=== PATIENT | male | born 1975 | race African-American/Black ===

== ENCOUNTER 2016-12-12 16:51 | Emergency (ER) | payer SELFPAY ==
[~2016-12-12] VITALS: Ht 188 cm; Wt 100.0 kg
[~2016-12-12 16:51] MED LIST: ADVA100A INH; AMOX500T PO; DIPH50TA PO
[2016-12-12 16:53] VITALS: BP 162/90; PULSE 87; RESP 16; TEMP 98.8; O2SAT 97
--- NOTE | 2016-12-12 16:59 | PD ---
Physical Exam Time Seen by Provider: 16:58 Narrative 41 y/o male here with spasming sensation in hands/feet, back tightness. Vital signs reviewed. Seen at triage desk. Awaiting bed placement. Data Data Last Documented VS Vital Signs Date Time Temp Pulse Resp B/P Pulse Ox O2 Delivery O2 Flow Rate FiO2 12/12/16 16:53 98.8 87 16 162/90 97 MDM Medical Record Reviewed: Yes Supervised Visit with NORM: Jaden Alfaro December 12, 2016 16:59
--- NOTE | 2016-12-12 18:43 | PD ---
HPI . Headache and back pain Chief Complaint: Back/ Neck Pain or Injury Time Seen by Provider: 18:22 Travel History International Travel<30 days: No Contact w/Intl Traveler<30days: No Traveled to known affect area: No History of Present Illness HPI Patient presents complaining with pain in his entire back with headache since yesterday. He also complains of carpal pedal spasm. He states that his symptoms are exacerbated by movement leave by lying on his stomach. He denies any fever. He does complain of some nasal drainage. PFSH Past Medical History Cancer: No Diabetes: No Diminished Hearing: No Glaucoma: No Hepatitis: No Hiatal Hernia: No Hypertension: No Respiratory: Yes Thyroid Disease: No Past Surgical History Abdominal Surgery: Yes (umbilical hernia repair) Ear Surgery: No Eye Surgery: No Genitourinary Surgery: No Gynecologic Surgery: No Oral Surgery: No Pacemaker: No Social History Alcohol Use: Yes (OCCASSIONAL ) Tobacco Use: Yes (/2 ppd) Substance Use: Yes (SMOKES MARIJUANA OCCASSIONALLY) Allergies-Medications (Allergen,Severity, Reaction): Coded Allergies: Penicillin (Verified Allergy, Severe, 12/12/16) Reported Meds & Prescriptions Reported Meds & Active Scripts Active No Active Prescriptions or Reported Medications Review of Systems Except as stated in HPI: all other systems reviewed are Neg General / Constitutional: No: Fever, Chills Eyes: No: Blurred Vision HENT: Positive: Headaches, Rhinorrhea Cardiovascular: No: Chest Pain or Discomfort Gastrointestinal: No: Nausea, Vomiting, Diarrhea Genitourinary: No: Urgency, Frequency, Dysuria Musculoskeletal: Positive: Myalgias, Pain (diffuse back pain) Psychiatric: No: Substance Abuse (patient denies any history of IV drug abuse.) Physical Exam Narrative GENERAL: Patient is awake and alert and in no acute distress. SKIN: Warm and dry. HEAD: Atraumatic. Normocephalic. EYES: Pupils equal and round. Extraocular movements are intact. ENT: No nasal bleeding or discharge. Mucous membranes pink and moist. NECK: Trachea midline. Neck is supple. CARDIOVASCULAR: Regular rate and rhythm. Heart sounds are normal. RESPIRATORY: No accessory muscle use. Lungs are clear with full air movement throughout. GASTROINTESTINAL: Abdomen soft, non-tender, nondistended. MUSCULOSKELETAL: No obvious deformities. No edema. Diffuse tenderness to palpation of the back. No point tenderness to percussion or palpation. NEUROLOGICAL: Awake and alert. No obvious cranial nerve deficits. Motor grossly within normal limits. Normal speech. Full range of motion of all 4 extremities. PSYCHIATRIC: Appropriate mood and affect; insight and judgment normal. Data Data Last Documented VS Vital Signs Date Time Temp Pulse Resp B/P Pulse Ox O2 Delivery O2 Flow Rate FiO2 12/12/16 16:53 98.8 87 16 162/90 97 Orders Complete Blood Count With Diff (12/12/16 18:33) Comprehensive Metabolic Panel (12/12/16 18:33) Chest, Pa & Lat (12/12/16 18:33) Iv Access Insert/Monitor (12/12/16 18:33) Sodium Chloride 0.9% Flush (Ns Flush) (12/12/16 18:45) Ketorolac Inj (Toradol Inj) (12/12/16 18:45) Prochlorperazine Inj (Compazine Inj) (12/12/16 18:45) Diphenhydramine Inj (Benadryl Inj) (12/12/16 18:45) Labs Laboratory Tests Test 12/12/16 19:00 White Blood Count 8.6 TH/MM3 Red Blood Count 4.79 MIL/MM3 Hemoglobin 13.9 GM/DL Hematocrit 40.9 % Mean Corpuscular Volume 85.3 FL Mean Corpuscular Hemoglobin 28.9 PG Mean Corpuscular Hemoglobin 33.9 % Concent Red Cell Distribution Width 13.5 % Platelet Count 211 TH/MM3 Mean Platelet Volume 8.6 FL Neutrophils (%) (Auto) 58.4 % Lymphocytes (%) (Auto) 31.4 % Monocytes (%) (Auto) 8.6 % Eosinophils (%) (Auto) 1.0 % Basophils (%) (Auto) 0.6 % Neutrophils # (Auto) 5.0 TH/MM3 Lymphocytes # (Auto) 2.7 TH/MM3 Monocytes # (Auto) 0.7 TH/MM3 Eosinophils # (Auto) 0.1 TH/MM3 Basophils # (Auto) 0.1 TH/MM3 CBC Comment DIFF FINAL Differential Comment Sodium Level 140 MEQ/L Potassium Level 3.7 MEQ/L Chloride Level 103 MEQ/L Carbon Dioxide Level 29.0 MEQ/L Anion Gap 8 MEQ/L Blood Urea Nitrogen 10 MG/DL Creatinine 1.10 MG/DL Estimat Glomerular Filtration 89 ML/MIN Rate Random Glucose 96 MG/DL Calcium Level 9.1 MG/DL Total Bilirubin 0.4 MG/DL Aspartate Amino Transf 17 U/L (AST/SGOT) Alanine Aminotransferase 30 U/L (ALT/SGPT) Alkaline Phosphatase 74 U/L Total Protein 7.7 GM/DL Albumin 4.1 GM/DL MDM Medical Decision Making Medical Screen Exam Complete: Yes Emergency Medical Condition: Yes Differential Diagnosis Differential diagnosis includes but is not limited to muscular low back pain, DDD, spinal stenosis, epidural abscess, sciatica, kidney infection or stone. Differential diagnosis of headache includes but is not limited to migraine, muscle contraction headache, brain tumor, brain bleed Narrative Course Patient presents with the chief complaint of diffuse back pain associated with carpopedal spasm and headache. CBC & BMP Diagram 12/12/16 19:00 Last Impressions Chest X-Ray 12/12/16 1833 Signed Impressions: Service Date/Time: Monday, December 12, 2016 18:45 - CONCLUSION: No acute disease. Otis Rosa MD This patient's evaluation is completely normal. He does not have any alarming physical exam findings. He will be discharged home. Diagnosis Primary Impression: Back pain Qualified Code: M54.9 - Acute midline back pain, unspecified back location Additional Impressions: Carpopedal spasm Headache Qualified Code: R51 - Acute nonintractable headache, unspecified headache type Postnasal drip Patient Instructions: Acute Headache (DC), Back Pain (ED), General Instructions Med/Other Pt SpecificInfo: Prescription(s) given Scripts Cyclobenzaprine (Flexeril)10 Mg Tab10 Mg PO TID #30 TAB Ref 0 Prov:Brittany Reis MD 12/12/16 Ibuprofen 800 Mg [id number] Mg PO Q8H PRN (Pain/Inflammation) #60 TAB Ref 0 Prov:Brittany Reis MD 12/12/16 Disposition: 01 DISCHARGE HOME Condition: Stable Brittany Reis MD December 12, 2016 18:43
[2016-12-12] MEDS ORDERED: SODIUM CHLORIDE 0.9% FLUSH 10 ML FLUSH IVF PRN (18:45)
[2016-12-12] MEDS ORDERED: KETOROLAC TROMETHAMINE 30 MG/ML (IVP) VIAL IVP ONE (18:45)
[2016-12-12] MEDS ORDERED: diphenhydrAMINE HCL 50 MG/ML VIAL IVP ONE (18:45)
[2016-12-12] MEDS ORDERED: PROCHLORPERAZINE INJ 10 MG/2 ML VIAL IVP ONE (18:45)
[2016-12-12 19:16] LABS: BASOPHIL # 0.1 TH/MM3 (0-0.2); BASOPHIL % 0.6 % (0.0-2.0); EOSINOPHIL # 0.1 TH/MM3 (0-0.4); HEMATOCRIT 40.9 % (39.0-51.0); HEMO FLAGS DIFF FINAL; LYMPH % 31.4 % (9.0-44.0); LYMPHOCYTE # 2.7 TH/MM3 (1.0-4.8); MEAN CELL VOLUME 85.3 FL (80.0-100.0); MEAN CORPUSCULAR HEMOGLOBIN 28.9 PG (27.0-34.0); MEAN CORPUSCULAR HGB CONC 33.9 % (32.0-36.0); MONO % 8.6 % (0.0-8.0); NEUT % 58.4 % (16.0-70.0); PLATELET COUNT 211 TH/MM3 (150-450); RED BLOOD COUNT 4.79 MIL/MM3 (4.50-5.90); RED CELL DISTRIBUTION WIDTH 13.5 % (11.6-17.2); WHITE BLOOD COUNT 8.6 TH/MM3 (4.0-11.0)
[2016-12-12 19:39] LABS: ANION GAP 8 MEQ/L (5-15); AST (GOT) 17 U/L (15-37); BLOOD UREA NITROGEN 10 MG/DL (7-18); CHLORIDE 103 MEQ/L (98-107); GLOMERULAR FILTRATION RATE 89 ML/MIN (>89); POTASSIUM 3.7 MEQ/L (3.5-5.1); SODIUM (NA) 140 MEQ/L (136-145)
[2016-12-12 19:42] LABS: ALKALINE PHOSPHATASE 74 U/L (45-117); ALT (GPT) 30 U/L (12-78); TOTAL BILIRUBIN ADULT 0.4 MG/DL (0.2-1.0)
--- NOTE | 2016-12-12 19:45 | RADRPT ---
EXAM DATE/TIME: 12/12/2016 18:45 [facility] COMPARISON: No previous studies available for comparison. INDICATIONS : Shortness of breath,chest pain, and cough. MEDICAL HISTORY : None. SURGICAL HISTORY : None. ENCOUNTER: Initial ACUITY: 3 days PAIN SCORE: 7/10 LOCATION: Bilateral chest FINDINGS: PA and lateral views of the chest demonstrate the lungs to be symmetrically aerated without evidence of mass, infiltrate or effusion. The cardiomediastinal contours are unremarkable. Osseous structure s are intact. CONCLUSION: No acute disease. Otis Rosa MD on December 12, 2016 at 19:43 Board Certified Radiologist. This report was verified electronically.
[2016-12-12] MEDS ORDERED: IBUP800T23 PO (20:11)
[2016-12-12] MEDS ORDERED: CYCL1TAB29 PO (20:11)
[2016-12-12 20:32] VITALS: BP 154/80
== END 2016-12-12 20:33 | disposition home or self-care (01) ==
LOC: NEPD 16:51
DX: M54.9 Dorsalgia, unspecified (principal); R09.82 Postnasal drip; R51 Headache; R29.0 Tetany
CPT/HCPCS: 71020; 80053; 85025; 96374; 96375; 99284; J0780; J1200; J1885

== ENCOUNTER 2017-08-10 15:13 | Emergency (ER) | payer SELFPAY ==
[~2017-08-10] VITALS: Ht 188 cm; Wt 95.5 kg
[~2017-08-10 15:13] MED LIST changes: -ADVA100A INH; -AMOX500T PO; +CYCL10TA PO; -DIPH50TA PO; +IBUP1TAB7 PO
[2017-08-10 15:14] VITALS: BP 160/96; PULSE 92; RESP 16; TEMP 98; O2SAT 96
--- NOTE | 2017-08-10 22:19 | PD ---
Physical Exam Date Seen by Provider: Aug 10, 2017 Time Seen by Provider: 21:50 Narrative 41-year-old male presents to the emergency department for evaluation of right- sided abdominal pain. He states that he sees a line with 3 dots on his right abdomen and states it feels like a vein. Patient denies any other complaint at this time. Data Data Last Documented VS Vital Signs Date Time Temp Pulse Resp B/P (MAP) Pulse Ox O2 Delivery O2 Flow Rate FiO2 08/10/17 15:14 98.0 92 16 160/96 (117) 96 MDM Supervised Visit with NORM: No Narrative Course 41-year-old male presents to the emergency department for evaluation of right- sided abdominal pain. Patient was initially seen in triage. He left AGAINST MEDICAL ADVICE before he be placed in a medical bed. Diagnosis Primary Impression: Left against medical advice Additional Impression: Abdominal pain Qualified Codes: R10.9 - Unspecified abdominal pain Disposition: 07 AGAINST MEDICAL ADVICE Heydi To Aug 10, 2017 22:19
== END 2017-08-10 21:50 | disposition left against medical advice (07) ==
LOC: NED 15:13
DX: R10.9 Unspecified abdominal pain (principal)
CPT/HCPCS: 99281

== ENCOUNTER 2017-08-12 09:19 | Emergency (ER) | payer SELFPAY ==
[~2017-08-12] VITALS: Ht 188 cm; Wt 95.2 kg
[2017-08-12 09:23] VITALS: BP 123/85; PULSE 90; RESP 18; TEMP 98.5; O2SAT 100
--- NOTE | 2017-08-12 09:32 | PD ---
Physical Exam Time Seen by Provider: 09:30 Narrative 41yo M c/o right hip pain and right abd pain since yesterday. Denies injury. Reports decreased urination. Denies hematuria. Reports a palpable "vein" that is painful to his right abdominal area. Denies hx kidney stones. +nausea w/o vomiting. Unknown fevers. Patient seen in triage. VS reviewed. Awaiting bed placement. See next providers note for final patient disposition. Data Data Last Documented VS Vital Signs Date Time Temp Pulse Resp B/P (MAP) Pulse Ox O2 Delivery O2 Flow Rate FiO2 08/12/17 09:23 98.5 90 18 123/85 (98) 100 Room Air MDM Supervised Visit with NORM: Elsi Lee Aug 12, 2017 09:32
[2017-08-12 10:13] LABS: BILIRUBIN, URINE NEG (NEG); BLOOD, URINE NEG (NEG); GLUCOSE,URINE NEG (NEG); KETONE, URINE NEG (NEG); MUCUS URINE FEW /lpf (OCC); NITRITE,URINE NEG (NEG); PH, URINE 5.5 (5.0-8.5); SQUAMOUS EPITHELIAL CELL URINE <1 /hpf (0-5); URINE COLOR YELLOW (YELLW/STRAW); URINE LEUKOCYTE ESTERASE NEG (NEG)
--- NOTE | 2017-08-12 12:33 | PD ---
HPI Chief Complaint: Abdominal Pain Time Seen by Provider: 12:07 Travel History International Travel<30 days: No Contact w/Intl Traveler<30days: No Traveled to known affect area: No History of Present Illness HPI Patient is a 41-year-old male presents emergency department for a few days history of right sided abdominal pain, abdominal mass. He states the pain is cramping, waxing and waning, gradually worsening. Not associated with any nausea vomiting diarrhea constipation. States symptoms are mild to moderate. He states that his been palpating a string-like mass on his right abdomen wall which she did not notice previously. [facility] Past Medical History Medical History: Denies Significant Hx Cancer: No Diabetes: No Diminished Hearing: No Glaucoma: No Hepatitis: No Hiatal Hernia: No Hypertension: No Respiratory: Yes Thyroid Disease: No Past Surgical History Abdominal Surgery: Yes (umbilical hernia repair) Ear Surgery: No Eye Surgery: No Genitourinary Surgery: No Gynecologic Surgery: No Oral Surgery: No Pacemaker: No Social History Alcohol Use: Yes (OCCASSIONAL ) Tobacco Use: Yes (/2 ppd) Substance Use: Yes (SMOKES MARIJUANA OCCASSIONALLY) Allergies-Medications (Allergen,Severity, Reaction): Coded Allergies: penicillin G (Unverified Allergy, Severe, 08/12/17) Reported Meds & Prescriptions Reported Meds & Active Scripts Active Flagyl (Metronidazole) 500 Mg Tab 500 Mg PO BID 7 Days Cipro (Ciprofloxacin HCl) 500 Mg Tab 500 Mg PO BID 7 Days Zofran (Ondansetron HCl) 4 Mg Tab 4 Mg PO Q6HR PRN Bentyl (Dicyclomine HCl) 10 Mg Cap 10 Mg PO TID Review of Systems Except as stated in HPI: all other systems reviewed are Neg Physical Exam Narrative GENERAL: Well-developed well-nourished, no obvious distress. SKIN: Focused skin assessment warm/dry. HEAD: Atraumatic. Normocephalic. EYES: Pupils equal and round. No scleral icterus. No injection or drainage. ENT: No nasal bleeding or discharge. Mucous membranes pink and moist. NECK: Trachea midline. No JVD. CARDIOVASCULAR: Regular rate and rhythm. No murmur appreciated. RESPIRATORY: No accessory muscle use. Clear to auscultation. Breath sounds equal bilaterally. GASTROINTESTINAL: Abdomen soft, non-tender, nondistended. Hepatic and splenic margins not palpable. There is a approximate 10 cm in length lesion noted in the right flank, nontender to palpation appears to be in the abdominal wall. Probably at its greatest diameter half centimeter by half centimeter. Otherwise the abdomen is benign no rebound no percussive tenderness. Psoas and obturator sign. MUSCULOSKELETAL: No obvious deformities. No clubbing. No cyanosis. No edema. NEUROLOGICAL: Awake and alert. No obvious cranial nerve deficits. Motor grossly within normal limits. Normal speech. PSYCHIATRIC: Appropriate mood and affect; insight and judgment normal. Data Data Last Documented VS Vital Signs Date Time Temp Pulse Resp B/P (MAP) Pulse Ox O2 Delivery O2 Flow Rate FiO2 08/12/17 16:23 08/12/17 09:23 98.5 90 18 100 Room Air Orders Orders Urinalysis - C+S If Indicated (08/12/17 09:41) Complete Blood Count With Diff (08/12/17 12:41) Comprehensive Metabolic Panel (08/12/17 12:41) Prothrombin Time / Inr (Pt) (08/12/17 12:41) Act Partial Throm Time (Ptt) (08/12/17 12:41) Ct Abd/Pel W Iv Contrast(Rout) (08/12/17 12:41) Iv Access Insert/Monitor (08/12/17 12:41) Ecg Monitoring (08/12/17 12:41) Oximetry (08/12/17 12:41) Sodium Chloride 0.9% Flush (Ns Flush) (08/12/17 12:45) Ketorolac Inj (Toradol Inj) (08/12/17 12:45) Iohexol 350 Inj (Omnipaque 350 Inj) (08/12/17 14:07) Ed Discharge Order (08/12/17 16:12) Labs Laboratory Tests Test 08/12/17 09:40 08/12/17 12:52 Urine Color YELLOW Urine Turbidity CLEAR Urine pH 5.5 Urine Specific [place] 1.016 Urine Protein NEG mg/dL Urine Glucose (UA) NEG mg/dL Urine Ketones NEG mg/dL Urine Occult Blood NEG Urine Nitrite NEG Urine Bilirubin NEG Urine Urobilinogen LESS THAN 2.0 MG/DL Urine Leukocyte Esterase NEG Urine RBC 1 /hpf Urine Squamous Epithelial Cells <1 /hpf Urine Mucus FEW /lpf Microscopic Urinalysis Comment CULT NOT INDICATED White Blood Count 8.1 TH/MM3 Red Blood Count 4.58 MIL/MM3 Hemoglobin 13.6 GM/DL Hematocrit 40.3 % Mean Corpuscular Volume 87.9 FL Mean Corpuscular Hemoglobin 29.7 PG Mean Corpuscular Hemoglobin Concent 33.7 % Red Cell Distribution Width 13.6 % Platelet Count 256 TH/MM3 Mean Platelet Volume 8.4 FL Neutrophils (%) (Auto) 59.2 % Lymphocytes (%) (Auto) 30.9 % Monocytes (%) (Auto) 7.6 % Eosinophils (%) (Auto) 1.6 % Basophils (%) (Auto) 0.7 % Neutrophils # (Auto) 4.8 TH/MM3 Lymphocytes # (Auto) 2.5 TH/MM3 Monocytes # (Auto) 0.6 TH/MM3 Eosinophils # (Auto) 0.1 TH/MM3 Basophils # (Auto) 0.1 TH/MM3 CBC Comment DIFF FINAL Differential Comment Prothrombin Time 10.9 SEC Prothromb Time International Ratio 1.1 RATIO Activated Partial Thromboplast Time 24.1 SEC Blood Urea Nitrogen 13 MG/DL Creatinine 1.11 MG/DL Random Glucose 110 MG/DL Total Protein 7.2 GM/DL Albumin 3.5 GM/DL Calcium Level 8.9 MG/DL Alkaline Phosphatase 78 U/L Aspartate Amino Transf (AST/SGOT) 14 U/L Alanine Aminotransferase (ALT/SGPT) 24 U/L Total Bilirubin 0.3 MG/DL Sodium Level 139 MEQ/L Potassium Level 3.7 MEQ/L Chloride Level 105 MEQ/L Carbon Dioxide Level 29.1 MEQ/L Anion Gap 5 MEQ/L Estimat Glomerular Filtration Rate 88 ML/MIN MDM Medical Decision Making Medical Screen Exam Complete: Yes Emergency Medical Condition: Yes Differential Diagnosis Abdominal wall mass, gastritis, gastroenteritis, ileitis. Narrative Course Patient roomed in emergency department, while the abdominal wall mass appears to be superficial, CT exam was ordered and shows the following results: Last 24 hours Impressions Abdomen/Pelvis CT 08/12/17 1241 Signed Impressions: Service Date/Time: Saturday, August 12, 2017 13:58 - CONCLUSION: 1. Mildly nonspecific, nonobstructive bowel gas pattern represent a mild ileus or gastroenteritis. There is normal appendix. 2. The right hip is intact with no underlying bony abnormality. Nilesh Cross MD Patient has been able to tolerate by mouth fluids so I do not appreciate an ileus in this patient. We'll start him on empiric antibiotics need follow-up with primary care physician. Discussed that the mass does not improve he may need biopsy in the future. There is no indication further emergent workup. On revisit he is sleeping soundly in no obvious distress, his abdomen remains benign other than the string-like mass.. He stable for discharge. Diagnosis Primary Impression: Abdominal pain Qualified Codes: R10.9 - Unspecified abdominal pain Referrals: Leann Liz MD [facility] Med/Other Pt SpecificInfo: Prescription(s) given Scripts Metronidazole (Flagyl) 500 Mg Tab 500 MG PO BID for Infection for 7 Days, #14 TAB 0 Refills Prov: Eliel Gomez MD 08/12/17 Ciprofloxacin (Cipro) 500 Mg Tab 500 MG PO BID for Infection for 7 Days, #14 TAB 0 Refills Prov: Eliel Gomez MD 08/12/17 Ondansetron (Zofran) 4 Mg Tab 4 MG PO Q6HR Y for NAUSEA OR VOMITING, #20 TAB 0 Refills Prov: Eliel Gomez MD 08/12/17 Dicyclomine (Bentyl) 10 Mg Cap 10 MG PO TID for Bowel Management, #20 CAP 0 Refills Prov: Eliel Gomez MD 08/12/17 Disposition: 01 DISCHARGE HOME Condition: Stable Eliel Gomez MD Aug 12, 2017 12:33
[2017-08-12] MEDS ORDERED: SODIUM CHLORIDE 0.9% FLUSH 10 ML FLUSH IV FLUSH PRN (12:45)
[2017-08-12] MEDS ORDERED: KETOROLAC TROMETHAMINE 30 MG/ML (IVP) VIAL IV PUSH ONE (12:45)
[2017-08-12 13:06] LABS: AUTOMATED NEUTROPHIL # 4.8 TH/MM3 (1.8-7.7); BASOPHIL # 0.1 TH/MM3 (0-0.2); BASOPHIL % 0.7 % (0.0-2.0); EOSINOPHIL # 0.1 TH/MM3 (0-0.4); EOSINOPHIL % 1.6 % (0.0-4.0); HEMATOCRIT 40.3 % (39.0-51.0); HEMOGLOBIN 13.6 GM/DL (13.0-17.0); LYMPH % 30.9 % (9.0-44.0); LYMPHOCYTE # 2.5 TH/MM3 (1.0-4.8); MEAN CELL VOLUME 87.9 FL (80.0-100.0); MEAN CORPUSCULAR HEMOGLOBIN 29.7 PG (27.0-34.0); MEAN CORPUSCULAR HGB CONC 33.7 % (32.0-36.0); MEAN PLATELET VOLUME 8.4 FL (7.0-11.0); MONO % 7.6 % (0.0-8.0); MONOCYTE # 0.6 TH/MM3 (0-0.9); NEUT % 59.2 % (16.0-70.0); PLATELET COUNT 256 TH/MM3 (150-450); RED BLOOD COUNT 4.58 MIL/MM3 (4.50-5.90); RED CELL DISTRIBUTION WIDTH 13.6 % (11.6-17.2); WHITE BLOOD COUNT 8.1 TH/MM3 (4.0-11.0)
[2017-08-12 13:12] LABS: INTERNATIONAL NORMALIZED RATIO 1.1 RATIO; PROTHROMBIN TIME - PATIENT 10.9 SEC (9.8-11.6)
[2017-08-12 13:17] LABS: ALBUMIN 3.5 GM/DL (3.4-5.0); ALT (GPT) 24 U/L (12-78); AST (GOT) 14 U/L (15-37); BICARBONATE 29.1 MEQ/L (21.0-32.0); CALCIUM 8.9 MG/DL (8.5-10.1); CHLORIDE 105 MEQ/L (98-107); CREATININE 1.11 MG/DL (0.60-1.30); GLOMERULAR FILTRATION RATE 88 ML/MIN (>89); GLUCOSE,RANDOM 110 MG/DL (74-106); SODIUM (NA) 139 MEQ/L (136-145)
[2017-08-12 13:22] LABS: ALKALINE PHOSPHATASE 78 U/L (45-117); BLOOD UREA NITROGEN 13 MG/DL (7-18); TOTAL BILIRUBIN ADULT 0.3 MG/DL (0.2-1.0); TOTAL PROTEIN 7.2 GM/DL (6.4-8.2)
[2017-08-12] MEDS ORDERED: IOHEXOL 350 MG/ML 10 ML VIAL (for RAD DIAG) IVCONTRAST ONE (14:07)
--- NOTE | 2017-08-12 14:18 | RADRPT ---
EXAM DATE/TIME: 08/12/2017 13:58 [facility] COMPARISON: No previous studies available for comparison. INDICATIONS : Right hip pain, abdominal pain, nausea. IV CONTRAST: 100 cc Omnipaque 350 (iohexol) IV ORAL CONTRAST: No oral contrast ingested. RADIATION DOSE: 7.12 CTDIvol (mGy) MEDICAL HISTORY : None SURGICAL HISTORY : Umbiblical hernia repair. ENCOUNTER: Initial ACUITY: 2 days PAIN SCALE: 7/10 LOCATION: Bilateral lower abdomen to right hip TECHNIQUE: Volumetric scanning of the abdomen and pelvis was performed. Using automated exposure control and ad justment of the mA and/or kV according to patient size, radiation dose was kept as low as reasonably achievable to obtain optimal diagnostic quality images. DICOM format image data is available electro nically for review and comparison. FINDINGS: LOWER LUNGS: The visualized lower lungs are clear. LIVER: Homogeneous density without lesion. There is no dilation of the biliary tree. No calcified gallston es. SPLEEN: Normal size without lesion. PANCREAS: Within normal limits. KIDNEYS: Normal in size and shape. There is no mass, stone or hydronephrosis. ADRENAL GLANDS: Within normal limits. VASCULAR: There is no aortic aneurysm. BOWEL/MESENTERY: No oral contrast was given limiting the sensitivity exam. There is a normal appendix. There are multi ple loops of nondilated air containing small bowel multiple smaller fluid levels. There is no free ai r or fluid. There are several small diverticuli. ABDOMINAL WALL: Within normal limits. RETROPERITONEUM: There is no lymphadenopathy. BLADDER: No wall thickening or mass. REPRODUCTIVE: Within normal limits. INGUINAL: There is no lymphadenopathy or hernia. MUSCULOSKELETAL: Within normal limits for patient age. The right hip is intact with no underlying bony abnormality. CONCLUSION: 1. Mildly nonspecific, nonobstructive bowel gas pattern represent a mild ileus or gastroenteritis. Th ere is normal appendix. 2. The right hip is intact with no underlying bony abnormality. Nilesh Cross MD on August 12, 2017 at 14:13 Board Certified Radiologist. This report was verified electronically.
[2017-08-12] MEDS ORDERED: METR-1 PO (16:11)
[2017-08-12] MEDS ORDERED: CIPR-9 PO (16:11)
[2017-08-12] MEDS ORDERED: ZOFR4TAB PO (16:11)
[2017-08-12] MEDS ORDERED: DICY10 PO (16:11)
== END 2017-08-12 16:24 | disposition home or self-care (01) ==
LOC: NEPD 09:19
DX: R10.9 Unspecified abdominal pain (principal); F17.200 Nicotine dependence, unspecified, uncomplicated; Z88.0 Allergy status to penicillin; Z79.899 Other long term (current) drug therapy
CPT/HCPCS: 74177; 80053; 81001; 85025; 85610; 85730; 99284; Q9967